=== PATIENT | female | born 1995 | race Caucasian/White ===

== ENCOUNTER 2017-03-09 18:18 | Emergency (ER) | payer BC ==
[~2017-03-09] VITALS: Ht 165.1 cm; Wt 87.7 kg
[2017-03-09 22:54] VITALS: BP 127/70
== END 2017-03-09 22:54 | disposition home or self-care (01) ==
LOC: ED 18:18
DX: G44.209 Tension-type headache, unspecified, not intractable (principal); F41.9 Anxiety disorder, unspecified
CPT/HCPCS: Q0092